=== PATIENT | female | born 1945 | race Caucasian/White ===

== ENCOUNTER → 2016-12-17 | Outpatient (CLI) | payer MEDICARE, OTHER | LOC: KOH-I 16:10 | DX: J40 Bronchitis, not specified as acute or chronic (principal) | CPT/HCPCS: 71020 ==

== ENCOUNTER → 2021-07-24 | Outpatient (CLI) | payer MEDICARE, OTHER | LOC: KOH-I 16:15 | DX: R06.02 Shortness of breath (principal); R05.9 Cough, unspecified | CPT/HCPCS: 71046 ==

== ENCOUNTER → 2022-02-01 | Outpatient (CLI) | payer MEDICARE, OTHER | LOC: KOH-I 15:12 | DX: M25.521 Pain in right elbow (principal); M19.021 Primary osteoarthritis, right elbow | CPT/HCPCS: 73060; 73080 ==

== ENCOUNTER → 2022-02-21 | Outpatient (CLI) | payer MEDICARE, OTHER | LOC: KOH-I 02-20 13:30 | DX: M25.521 Pain in right elbow (principal); R60.0 Localized edema | CPT/HCPCS: 93971 ==

== ENCOUNTER → 2022-03-14 | Outpatient (CLI) | payer MEDICARE, OTHER | LOC: HEART 5 11:19 | DX: J45.909 Unspecified asthma, uncomplicated (principal); R94.2 Abnormal results of pulmonary function studies | CPT/HCPCS: 94060; 94729; 95012 ==

== ENCOUNTER → 2022-06-18 | Outpatient (CLI) | payer MEDICARE, OTHER | LOC: EXRD 11:00 | DX: M19.031 Primary osteoarthritis, right wrist (principal) | CPT/HCPCS: 73110; 73120 ==